=== PATIENT | female | born 1970 | race Caucasian/White ===

== ENCOUNTER 2017-02-16 23:26 | Inpatient (IN) | payer OTHER ==
[~2017-02-16] VITALS: Ht 157.5 cm; Wt 63.5 kg
--- NOTE | ~2017-02-16 | EKG ---
[address] [address] ELECTROCARDIOGRAM REPORT Name: PEYMAN MEDINA Room #: 213-P [facility] IN M.R.#: [id number] Admission: 02/16/17 Attend Phys: Brent Mosqueda MD Discharge: Date of : 68 Report #: [id number] THIS REPORT FOR: //name// [facility] Test Date: 2017-02-17 Test Time: 09:40:23 Pat Name: PEYMAN MEDINA Department: Room: 213 Gender: F Last Turner: Shakeel BURNS : 1970 Requested By: Armaan Sims Order Number: [id number] MD: Damion Mistry Measurements Intervals [place] Rate: 109 P: 57 GA: 135 QRS: 18 QRSD: 82 T: 69 QT: 336 QTc: 453 Interpretive Statements Sinus tachycardia Compared to ECG 02/16/2017 23:33:44 Ventricular premature complex(es) no longer present ST (T wave) deviation no longer present Electronically Signed On 02-19-2017 7:31:58 CDT by Damion Mistry [email or web address] <ELECTRONICALLY SIGNED> By: Damion Mistry MD, [facility] 02/19/17 0731 9 9 Damion Mistry MD, [facility] /EPI
--- NOTE | ~2017-02-16 | CATHLAB ---
[address] [address] [place] [address] INVASIVE PROCEDURE REPORT Name: PEYMAN MEDINA Room #: 213-P [facility] IN ..#: [id number] Admission: 02/16/17 Attend Phys: Brent Mosqueda, Discharge: Date of : 68 Date of Service: 02/17/17 0054 Report #: [id number] THIS REPORT FOR: //name// CC: Brent Mosqueda DATE OF SERVICE: 02/17/2017 PROCEDURE: Cardiac catheterization procedure. INDICATION: Neck pain, abnormal ECG, rule out SC. Full risks, benefits and alternatives of cardiac catheterization were explained to the patient and her . All questions were answered. Informed consent was obtained. The right groin area was prepped and draped in a sterile manner. Lidocaine was given subcutaneously. A 4-Telugu sheath was inserted into the right femoral artery via modified Seldinger technique. CORONARY ANATOMY: The left main artery is a large-caliber vessel, with no flow-limiting lesions. The LAD is a qejnyguq-gd-pgzun-sized caliber vessel, travelling down the anterior wall and wrapping around the apex. There is only mild disease in the proximal segment, less than 10%. The first diagonal artery is a moderate-sized caliber vessel, with no flow-limiting lesions. The left circumflex artery is a ucrcdejm-ls-gsonm-sized caliber vessel, supplying several obtuse marginal arteries. There are no flow-limiting lesions in the left circumflex artery. The RCA is a dominant vessel supplying a PDA and several posterolateral branches. There were no flow-limiting lesions in the RCA. There may be some minimal disease in the proximal segment of the RCA. A left ventriculogram was performed revealing moderately severe LV dysfunction, ejection fraction of 35%. There is hypokinesis of the ziz-fa-taogke anterior and uum-ip-aoelys inferior segment. This is consistent with Takotsubo cardiomyopathy. The LVEDP is approximately 34 mmHg. There is no gradient across the outflow tract. IMPRESSION: 1. Takotsubo cardiomyopathy. [address] [address] [place] [address] INVASIVE PROCEDURE REPORT Name: PEYMAN MEDINA Room #: 213-P ADM IN M.R.#: [id number] Admission: 02/16/17 Attend Phys: Brent Mosqueda, Discharge: Date of : 68 Date of Service: 02/17/17 0054 Report #: [id number] 2. Mild disease in the left anterior descending. 3. Recommend medical therapy. <ELECTRONICALLY SIGNED> By: Armaan Sims MD 02/18/17 0802 0054 1119 Armaan Sims MD /nt
--- NOTE | ~2017-02-16 | HC ---
[facility] [place] [address] CONSULTATION Name: PEYMAN MEDINA Ana Laura Room #: 213-P ADM IN M.R.#: [id number] Admission: 02/16/17 Attend Phys: Brent Mosqueda MD Discharge: Date of : 68 Report #: [id number] THIS REPORT FOR: //name// CC: Brent Mosqueda DATE OF SERVICE: 02/17/2017 INDICATION: Syncope, abnormal ECG. HISTORY OF PRESENT ILLNESS: This is a 46-year-old female with no significant past medical history presenting with acute onset of neck pain and rigidity. Two days ago, she presented to the ER with complaints of abdominal discomfort. She was diagnosed with a urinary tract infection and discharged on Bactrim. According to the , the patient felt anxious today and suddenly complained of neck discomfort with rigidity. She presented to triage for an evaluation. She was unresponsive and brought emergently to the ER area for an evaluation. She was given one episode of epi. Prior to the event, she had a normal rhythm. Clinically, she responded to the epinephrine with a stable heart rate and blood pressure. An ECG revealed sinus rhythm with diffuse ST elevation in leads I, aVL, V4-V6 and lead II. The MA interval , but there appears to be depression in those same leads. There is also some slight MA elevation in lead aVR. We are asked to evaluate the patient for possible STEMI protocol. The patient is weak and denies any complaints of chest pain or shortness of breath. PAST MEDICAL HISTORY: Negative for diabetes, negative for hypertension, and recently diagnosed with a urinary tract infection. ALLERGIES: None, possibly SULFA. MEDICATIONS: Bactrim. SOCIAL HISTORY: Negative for tobacco use. FAMILY HISTORY: Negative for premature CAD. REVIEW OF SYSTEMS: A full 10-point review of systems performed. Only the pertinent positives and negatives are described in the HPI. PHYSICAL EXAMINATION: VITAL SIGNS: Blood pressure is 110/60, heart rate is 90 beats per minute. GENERAL APPEARANCE: This is a well-developed, well-nourished female, in no acute respiratory distress. HEAD AND EYES: Normocephalic. Sclerae are anicteric. ENT: Oral mucosa moist. NECK: Rigid, no JVD. LUNGS: Clear to auscultation. [facility] [address] [place] [address] CONSULTATION Name: PEYMAN MEDINA Room #: 213-P [facility] IN M.R.#: [id number] Admission: 02/16/17 Attend Phys: Brent Mosqueda MD Discharge: Date of : 68 Report #: [id number] CARDIAC: Regular rate and rhythm, S1, S2 positive. No rub. No murmurs. ABDOMEN: Soft, nontender. Bowel sounds positive. EXTREMITIES: No major joint deformities. No edema. ECG reveals sinus rhythm, ST elevation in leads I, aVL, V4-V6, lead II, and MA elevation in leads aVR. LABORATORY VALUES: Sodium is 136, creatinine is 1.0. White count is 8.1, hemoglobin is 12.2. ASSESSMENT: 1. Abnormal ECG. Rule out acute myocardial infarction. The differential diagnosis for the abnormal ECG includes acute pericarditis. I discussed with the patient and her the results; however, initial evaluation and ECG. The plan is to proceed with a cardiac catheterization. They understand and agree. 2. Sepsis, complaints of neck discomfort and nausea. We will need to be sanders cultured. 3. Syncope, probably related to low blood pressure versus vasovagal. We will need to monitor after the procedure. Thank you for allowing me to participate in the care of your patient. <ELECTRONICALLY SIGNED> By: Armaan Sims MD 02/18/17 0802 0017 1101 Armaan Sims MD /nt
--- NOTE | ~2017-02-16 | 2DMMODE ---
[facility] [address] [place] [address] 2 D/M-MODE ECHOCARDIOGRAM Name: PEYMAN MEDINA Room #: 244-P [facility] IN [facility]#: [id number] Admission: 02/16/17 Attend Phys: Brent Mosqueda, Discharge: Date of : 68 Date of Service: 02/17/17 0935 Report #: [id number] THIS REPORT FOR: //name// APPROVED REPORT Study performed: 02/17/2017 08:39:39 EXAM: Comprehensive 2D, Doppler, and color-flow Echocardiogram Patient Location: Bedside Blood Pressure: 106/75 mmHg HR: 102 bpm Other Information Study Quality: Good Indications Cardiomyopathy 2D Dimensions RVDd: 33.03 mm LVEF(%): 30.41 (>50%) IVSd: 7.90 (7-11mm) LVOT Diam: 21.16 (18-24mm) LVDd: 44.59 mm PWd: 5.66 (7-11mm) Ascending Aorta: 30.64 mm LVDs: 38.26 (25-40mm) IVC: 23.00 mm Aortic Root: 30.22 mm Preston's LVEF: 30.41 % Volumes Left Atrial Volume (Systole) Single Plane 4CH: 43.17 mL Single Plane 2CH: 30.44 mL LA ESV Index: 25.00 mL/m2 Aortic Valve AoV Peak Jasper.: 1.06 m/s AO Peak Gr.: 4.47 mmHg LV Max P.44 mmHg LV Max: 0.78 m/s Mitral Valve MV PHT: 67.26 ms MV E Max Jasper.: 1.18 m/s E/A Ratio: 1.1 MV A Jasper.: 1.09 m/s MV Decel. Time: 231.93 ms [facility] [address] [place] [address] 2 D/M-MODE ECHOCARDIOGRAM Name: PEYMAN MEDINA Room #: 244-P [facility] IN M.R.#: [id number] Admission: 02/16/17 Attend Phys: Brent Mosqueda, Discharge: Date of : 68 Date of Service: 02/17/17 0935 Report #: [id number] Pulmonary Valve PV Peak Jasper.: 0.77 m/s PV Peak Gr.: 2.36 mmHg VA End Vmax: 1.56 m/s Tricuspid Valve TR Peak Jasper.: 2.77 m/s RAP Estimate: 15.00 mmHg TR Peak Gr.: 30.72 mmHg Left Ventricle The left ventricle is normal size. There is akinesis of septum and anterolateral stoll. There is normal left ventricular wall thickness. Left ventricular ejection fraction is severely decreased. LVEF is 25-30%. Right Ventricle The right ventricle is normal size. The right ventricular systolic function is normal. Atria The left atrium size is normal. The right atrium size is normal. Aortic Valve The aortic valve is normal in structure. No aortic regurgitation is present. There is no aortic valvular stenosis. Mitral Valve The mitral valve is normal in structure. There is no mitral valve regurgitation noted. Tricuspid Valve The tricuspid valve is normal in structure. There is mild tricuspid regurgitation. The right atrial pressure is estimated at 15 mmHg. There is mild-moderate pulmonary hypertension. The estimated PAP was 45 mmHg. Pulmonic Valve The pulmonary valve is normal in structure. Trace pulmonic regurgitation. Great Vessels The aortic root is normal in size. The inferior vena cava is dilated with no inspiratory collapse. Pericardium There is no pericardial effusion. [facility] [address] [place] [address] 2 D/M-MODE ECHOCARDIOGRAM Name: PEYMAN MEDINA Room #: 244-P [facility] IN ..#: [id number] Admission: 02/16/17 Attend Phys: Brent Mosqueda, Discharge: Date of : 68 Date of Service: 02/17/17 0935 Report #: [id number] <Conclusion> The left ventricle is normal size. There is akinesis of septum and anterolateral stoll, best function at base of heart LVEF is 25-30%. Consider apical variant Takutsubo cardiomyopathy The mitral valve is normal in structure, no mitral valve regurgitation noted. The aortic valve is normal in structure, no aortic valvular stenosis or insufficiency. There is mild tricuspid regurgitation. The right atrial pressure is estimated at 15 mmHg. There is mild-moderate pulmonary hypertension. The estimated PAP was 45 mmHg. There is no pericardial effusion. <ELECTRONICALLY SIGNED> By: Damino Mistry MD, FACC 02/17/17934 4 4 Damion Mistry MD, FACC /INF
--- NOTE | ~2017-02-16 | HC ---
[facility] [place] [address] [address] CONSULTATION Name: WILLIESHAGGYRICOEDMUND Du Room #: 213-P [facility] IN M.R.#: [id number] Admission: 02/16/17 Attend Phys: Brent Mosqueda MD Discharge: Date of : 68 Report #: [id number] THIS REPORT FOR: //name// CC: Brent Mosqueda DATE OF SERVICE: 02/19/2017 REASON FOR CONSULTATION: Thyroid mass. HISTORY OF PRESENT ILLNESS: The patient is a 46-year-old female who has no other significant past medical history with the exception of the recently diagnosed upper respiratory infection. She had taken Bactrim and after taking Bactrim developed neck pain and rigidity where she became unresponsive and did receive a dose of epinephrine. There was concern about thyroid storm and ultrasound was ordered. She has mass present in the left thyroid, which is less than 1 cm. Her thyroid functions have come back normal. They are still waiting on a thyroglobulin antibody, thyroid peroxidase antibody, but her TSH is 1. She has no other significant thyroid history symptoms. PAST MEDICAL HISTORY: Significant for urinary tract infection. ALLERGIES: Recent allergies now should be listed as SULFA. MEDICATIONS: See her MAR. She is no longer taking Bactrim. SOCIAL HISTORY: Negative for tobacco use. FAMILY HISTORY: Noncontributory. REVIEW OF SYSTEMS: Essentially negative at this time. PHYSICAL EXAMINATION: GENERAL: She is a well-developed female in no apparent distress. HEENT: symmetric facial features. No skin lesions. Eyes: Pupils equal, round, reactive to light. Nasal: No active rhinorrhea. Oral cavity normal. NECK: Her thyroid is minimally enlarged. There is no tenderness in the anterior neck whatsoever. Her thyroid is nontender. IMPRESSION: Mildly enlarged thyroid gland with less than 1 cm nodule with normal thyroid function testing. PLAN: Follow up to make sure that her antibodies were also normal; however, this does not sound as though this is thyroid related and is much more likely to be related to her Bactrim use. She needs an ultrasound in 6 months to establish [facility] [address] [place] [address] CONSULTATION Name: PEYMAN MEDINA Room #: 213-P [facility] IN M.R.#: [id number] Admission: 02/16/17 Attend Phys: Brent Mosqueda MD Discharge: Date of : 68 Report #: [id number] stability of the thyroid nodule on the left. She will follow up with me if she has a change in her ultrasound . By: 1550 1640 Mathew Spencer MD /nt
--- NOTE | ~2017-02-16 | D ---
[facility] [place] [address] [address] DISCHARGE SUMMARY Name: PEYMAN MEDINA Ana Laura Room #: 213-P ADM IN M.R.#: [id number] Admission: 02/16/17 Attend Phys: Brent Mosqueda MD Discharge: Date of : 68 Report #: [id number] THIS REPORT FOR: //name// CC: Brent Mosqueda DATE OF SERVICE: 02/20/2017 DATE OF ADMISSION: 02/16/2017. DATE OF DISCHARGE: 02/20/2017. ADMITTING DIAGNOSES: Syncope, ST-elevation myocardial infarction and neck pain. DISCHARGE DIAGNOSES: 1. Vertebral artery aneurysm with bleeding. 2. Takotsubo cardiomyopathy. HOSPITAL COURSE: The patient is a 46-year-old female who was admitted through the ER after having a syncopal event and having some severe neck pain. She was worked up for possible STEMI in light of the fact that she had marked abnormal changes of her EKG on admission. Her catheterization was negative as far as her coronary arteries, but her ejection fraction was low at 30%. The patient was monitored. MRI of her neck did not show any significant herniated disk or degenerative changes. Ultrasound of her neck showed a thyroid nodule which was evaluated by ENT and felt to be benign. Remainder of her lab was fairly unremarkable. The patient reported a severe excruciating headache on the 14th, in the morning, that she has not had before. She has had some neck pain previous to that, but the headache was acute today. She was taken out for a stat CT angiogram, which showed this 4-mm vertebral artery aneurysm. There was no evidence of bleeding, however. In light of that and the clinical picture, we needed further evaluation. So, an LP was done, which was grossly bloody. After those results were identified, the patient was recommended for transfer to for vascular evaluation. She is awake and alert. Information was discussed with her and her . We are awaiting transfer at this time to [facility]. By: 1229 1325 Brent Mosqueda MD /nt
--- NOTE | ~2017-02-16 | EKG ---
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 : 1970 Requested By: Karla Metcalf Order Number: [id number] MD: Damion Mistry Measurements Intervals [place] Rate: 99 P: 70 AR: 133 QRS: 12 QRSD: 93 T: 39 QT: 338 QTc: 434 Interpretive Statements Sinus rhythm Atrial and ventricular premature complex Lateral infarct, acute Borderline ST elevation, anterior leads Compared to ECG 02/14/2017 17:34:20 Atrial and ventricular premature complex(es) now present injury pattern now present Electronically Signed On 02-17-2017 7:47:10 CDT by Damion Mistry [email or web address] <ELECTRONICALLY SIGNED> By: Damion Mistry MD, [facility] 02/17/17 0747 2333 2333 Damion Mistry MD, [facility] /EPI
--- NOTE | ~2017-02-16 | H ---
[facility] [place] [address] HISTORY AND PHYSICAL Name: PEYMAN MEDINA Ana Laura Room #: 244-P ADM IN M.R.#: [id number] Admission: 02/16/17 Attend Phys: Brent Mosqueda MD Discharge: Date of : 68 Report #: [id number] THIS REPORT FOR: //name// CC: Brent Mosqueda DATE OF SERVICE: 02/17/2017 DATE OF ADMISSION: 02/16/2017 CHIEF COMPLAINT: Neck pain, throat pain. HISTORY OF PRESENT ILLNESS: The patient is a 46-year-old female who had been in the ER earlier in the last week with abdominal pain, was found to have a possible UTI, started on Bactrim. She states after taking I believe one or two doses she started developing throat pain and felt her throat was swelling. She called the office, we recommended she take Benadryl and if it did not improve come to the ER. Her brought her to the ER as the numbness was developing in her throat. On arrival in the ER, she vomited and became unresponsive in the triage area. She was rushed back into the ER and evaluated at that time. I have seen her in the morning after admission. She was rushed to the catheterization lab last night for possible STEMI. Unfortunately, her coronary arteries did not show any significant coronary artery disease, however, she did have a decreased ejection fraction of 30%. PAST MEDICAL HISTORY: Is significant for this recent abdominal pain and then this neck pain is fairly more posterior neck then throat, but also some fullness in her throat as well, not aware of any fever or chills. PHYSICAL EXAMINATION: VITAL SIGNS: Her initial vital signs in the ER, blood pressure is 188/132, her pressure currently is 87/62. GENERAL: She is currently awake and alert, in no distress. HEENT: No headaches or visual changes. Her mucous membranes are moist. NECK: Supple, without adenopathy, thyromegaly or bruits. Her left side of her neck has the site of the recent EJ catheter, which has been removed. Her neck is painful across the occiput, but is supple. I saw her earlier this morning and she had limited range of motion of her neck. She subsequently had a muscle relaxer and has much more improved range of motion. There are no palpable masses in her neck. CHEST: She did not have any chest pressure, she had the neck pain. Clear to auscultation bilaterally. GASTROINTESTINAL: She has had the abdominal pain recently. No vomiting or diarrhea. GENITOURINARY: The recent UTI with burning. EXTREMITIES: No new weakness or numbness in her joints. SKIN: No new rashes or wounds. [facility] [address] [place] [address] HISTORY AND PHYSICAL Name: CAROLPEYMAN Room #: 244-P [facility] IN M.R.#: [id number] Admission: 02/16/17 Attend Phys: Brent Mosqueda MD Discharge: Date of : 68 Report #: [id number] CARDIOVASCULAR: Regular rhythm without murmur. ABDOMEN: Soft, nondistended, nontender, no masses. Bowel sounds are active. EXTREMITIES: Showed no edema. Pulses are intact. LABORATORY DATA: EKG showed a sinus rhythm rate of 99. There was ST elevation in lead I, aVL, V5, V6 and depression in III, AVR and V1. She was taken to the catheterization lab per Dr. Sims and this was changed from her EKG just [address] Her labs, sodium was 136, potassium 4.5, chloride 103, bicarbonate 24, BUN was 14, creatinine 1.0, glucose is 125, troponin was less than 0.04. Magnesium is 2.1. INR 1.0. WBC is 8.1, hemoglobin 12.2, hematocrit 36.2, platelet count 293, 43 segs, 49 lymphs. Chest x-ray shows basilar atelectasis, no acute process. HOSPITAL COURSE: She was taken to the catheterization lab emergently, again no true infarct was found. She had the decreased ejection fraction. She has been transferred to the ICU. She had a CT of her neck this morning, which showed no fractures, no other acute process other than the IV on the left neck. ASSESSMENT AND PLAN: 1. Syncopal episode, presumed STEMI, but in actuality she did not have any infarct. 2. Cardiomyopathy not sure if this is stress related/had very high blood pressure, she had in the ER, versus symptom viral illness. 3. Episode of vomiting, resolved. 4. Neck pain. I do not think this is meningitis. This is musculoskeletal. She is improving with muscle relaxers. She had dose of steroids last night. We will try her on Tylenol and muscle relaxers, which seems to be helping. We will discuss with Cardiology, I have already added Coreg, we may add an MAUDE inhibitor as well. Hopefully, this decreased ejection infection will improve with time. She apparently had an echo this morning, which confirmed the decreased EF, so this does seem to be a true number. We will defer med choices to Cardiology, but I expect will be continuing the beta nadine and adding the MAUDE inhibitor. By: 1227 1345 Brent Mosqueda MD /nt
[~2017-02-16 23:26] MED LIST: BACTRIM DS TAB1 EACH PO; BENTYL 10 MG CA10 M1 PO; PHENERGAN 25 MG25 M1 PO; ZANTAC 150MG T150 MG PO
[2017-02-16 23:31] VITALS: BP 188/132
[2017-02-16 23:44] LABS: ABSOLUTE NEUTROPHILS 3.5 thou/uL (1.4-8.2); BASOPHILS 0.7 % (0.0-2.0); EOSINOPHILS 1.6 % (0.0-3.0); HEMATOCRIT 36.2 % (37.0-47.0); HEMOGLOBIN 12.2 gm/dL (12.0-15.0); LYMPHOCYTES 48.9 % (24.0-44.0); MCH 29.2 pg (26.0-34.0); MCHC 33.6 g/dL (28.0-37.0); MCV 86.7 fL (80.0-100.0); MONOCYTES 5.6 % (1.0-8.0); PLATELET COUNT 293 thou/uL (150-400); POLYS 43.2 % (36.0-66.0); RBC 4.18 mil/uL (4.20-5.00); RDW 12.9 % (10.5-14.5); WBC 8.1 thou/uL (4.0-11.0)
[2017-02-16 23:48] LABS: MANUAL DIFF NO
[2017-02-16 23:50] LABS: CALCIUM 8.4 mg/dL (8.5-10.1); POTASSIUM 4.5 mmol/L (3.5-5.1)
[2017-02-16 23:52] LABS: POC CA IONIZED 4.2 mg/dL (4.5-5.3); POC CREATININE 0.9 mg/dL (0.6-1.3); POC HEMOGLOBIN 11.9 g/dL (12.0-15.0); POC POTASSIUM 2.6 mmol/L (3.5-5.1)
[2017-02-16 23:59] LABS: APTT 23.6 Seconds (24.5-32.8); PROTIME 10.4 Seconds (9.3-11.4)
[2017-02-17] VITALS (38 sets, daily range): BP systolic 75–164; BP diastolic 40–132
[2017-02-17 07:01] LABS: URINE BILIRUBIN NEGATIVE (Negative); URINE BLOOD 2+ (Negative); URINE COLOR YELLOW; URINE GLUCOSE-RANDOM* NEGATIVE (Negative); URINE KETONES NEGATIVE (Negative); URINE NITRITE NEGATIVE (Negative); URINE PROTEIN (DIPSTICK) NEGATIVE (Negative); URINE SPECIFIC GRAVITY <= 1.005 (1.003-1.035); URINE UROBILINOGEN 0.2 E.U./dl (0.2-1.0)
[2017-02-17 07:38] LABS: BACTERIA 1-9 Few /HPF (None Seen); CASTS None Seen /LPF (None Seen); CRYSTALS None Seen /LPF (None Seen); SQUAMOUS >10 Many /LPF (0-3); URINE RBC 3-10 Few /HPF (0-2); URINE WBC 0-5 Rare /HPF (0-5)
[2017-02-17 13:55] LABS: URINE BILIRUBIN NEGATIVE (Negative); URINE BLOOD NEGATIVE (Negative); URINE COLOR YELLOW; URINE GLUCOSE-RANDOM* TRACE (Negative); URINE KETONES NEGATIVE (Negative); URINE LEUKOCYTES-REFLEX NEGATIVE (Negative); URINE PROTEIN (DIPSTICK) NEGATIVE (Negative)
[2017-02-18 03:46] VITALS: BP 107/65
[2017-02-18 03:59] LABS: HEMATOCRIT 33.5 % (37.0-47.0); HEMOGLOBIN 11.2 gm/dL (12.0-15.0); MCH 29.2 pg (26.0-34.0); MCHC 33.4 g/dL (28.0-37.0); MCV 87.4 fL (80.0-100.0); RBC 3.83 mil/uL (4.20-5.00); RDW 13.1 % (10.5-14.5); WBC 11.8 thou/uL (4.0-11.0)
[2017-02-18 04:11] LABS: CALCIUM 8.6 mg/dL (8.5-10.1); CREATININE 0.9 mg/dL (0.6-1.0); POTASSIUM 4.5 mmol/L (3.5-5.1)
[2017-02-18 04:34] LABS: TROPONIN-I 2.62 ng/mL (<0.04-0.07)
[2017-02-18 07:39] VITALS: BP 111/72
[2017-02-18 11:17] VITALS: BP 87/57
[2017-02-18 13:29] LABS: AMYLASE 30 U/L (25-115)
[2017-02-18 13:49] VITALS: BP 93/55
[2017-02-18 15:55] VITALS: BP 87/58
[2017-02-18 19:39] VITALS: BP 107/70
[2017-02-19 03:08] LABS: URINE BILIRUBIN NEGATIVE (Negative); URINE BLOOD 3+ (Negative); URINE COLOR YELLOW; URINE GLUCOSE-RANDOM* NEGATIVE (Negative); URINE KETONES 1+ (Negative); URINE LEUKOCYTES-REFLEX 1+ (Negative); URINE PROTEIN (DIPSTICK) TRACE (Negative)
[2017-02-19 03:22] LABS: CASTS None Seen /LPF (None Seen); SQUAMOUS 0-3 Few /LPF (0-3); URINE WBC-REFLEX 6-15 Few /HPF (0-5)
[2017-02-19 03:23] LABS: CRYSTALS None Seen /LPF (None Seen); URINE RBC 3-10 Few /HPF (0-2); WBC CLUMPS Few (None Seen)
[2017-02-19 04:24] LABS: CALCIUM 8.2 mg/dL (8.5-10.1); CREATININE 0.8 mg/dL (0.6-1.0); POTASSIUM 3.6 mmol/L (3.5-5.1)
[2017-02-19 05:21] VITALS: BP 99/68
[2017-02-19 05:23] VITALS: BP 139/82
[2017-02-19 07:45] VITALS: BP 124/93
[2017-02-19 11:15] VITALS: BP 95/62
[2017-02-19 14:52] VITALS: BP 113/82
[2017-02-19 15:06] LABS: FREE T4 1.43 ng/dL (0.82-1.77)
[2017-02-19 19:58] VITALS: BP 101/60
[2017-02-20 03:23] VITALS: BP 110/75
[2017-02-20 07:35] VITALS: BP 128/90
[2017-02-20 12:30] VITALS: BP 128/82
[2017-02-20 12:43] LABS: CSF GLUCOSE 32 mg/dL (40-70); CSF PROTEIN 108 mg/dL (15-45)
[2017-02-20 13:00] VITALS: BP 125/82
[2017-02-20 13:21] LABS: MANUAL DIFF YES; NUMBER OF TUBES 4; VOLUME 11.5 ml
[2017-02-20 13:27] LABS: CSF EOSINOPHILS 3 %; CSF LYMPHOCYTES 19 %; CSF MONONUCLEARS 2 %; CSF POLYS 75 %
[2017-02-20 13:30] VITALS: BP 122/87
[2017-02-20 13:30] LABS: CSF WBC 242 /mm3 (0-10)
[2017-02-20 13:31] LABS: CSF CLARITY CLOUDY; CSF COLOR RED
== END 2017-02-20 14:00 | disposition short-term general hospital (02) | DRG 982 ==
LOC: ER 23:26 → 2N 23:48 → EROBS 23:48 → ICU 23:48 → TBA 02-17 00:13 → ICU 02-17 01:20 → 2N 02-17 17:00
PROVIDERS: Emergency Medicine; Family Medicine; Internal Medicine Cardiovascular Disease
PROC: 4A023N7 Measurement of Cardiac Sampling and Pressure, Left Heart, Percutaneous Approach (ICD-10-PCS; principal; 2017-02-17)
PROC: 009Y3ZZ Drainage of Lumbar Spinal Cord, Percutaneous Approach (ICD-10-PCS; 2017-02-20)
PROC: B2151ZZ Fluoroscopy of Left Heart using Low Osmolar Contrast (ICD-10-PCS; 2017-02-20)
PROC: B2111ZZ Fluoroscopy of Multiple Coronary Arteries using Low Osmolar Contrast (ICD-10-PCS; 2017-02-20)
DX: I72.6 Aneurysm of vertebral artery (principal); I51.81 Takotsubo syndrome; N39.0 Urinary tract infection, site not specified; I10 Essential (primary) hypertension; E04.9 Nontoxic goiter, unspecified; R00.0 Tachycardia, unspecified; M54.12 Radiculopathy, cervical region; E04.1 Nontoxic single thyroid nodule; Z79.82 Long term (current) use of aspirin; Z88.2 Allergy status to sulfonamides
CPT/HCPCS: 10081

== ENCOUNTER → 2022-01-02 | Outpatient (CLI) | payer OTHER | LOC: BC 10:23 | PROVIDERS: ATTEND Family Medicine | DX: N64.59 Other signs and symptoms in breast (principal); R92.2 Inconclusive mammogram ==